=== PATIENT | male | born 1970 | race Caucasian/White ===

== ENCOUNTER 2022-10-14 06:37 | Day surgery (SDC) | payer OTHER ==
[~2022-10-14] VITALS: Ht 185.4 cm; Wt 92.1 kg
[2022-10-14] MEDS ORDERED: ASPI81CH PO (06:54)
[2022-10-14] MEDS ORDERED: AMLO5 PO (06:54)
[2022-10-14] MEDS ORDERED: ATEN25 PO (06:54)
[2022-10-14] MEDS ORDERED: ZOCOR20 MG PO (06:55)
[2022-10-14] MEDS ORDERED: GLIP5 PO (06:55)
[2022-10-14] MEDS ORDERED: ESCI20 PO (06:55)
[2022-10-14] MEDS ORDERED: METF500 PO (06:55)
[2022-10-14] MEDS ORDERED: LISI5 PO (06:55)
[2022-10-14] MEDS ORDERED: EUTHYROX88 MCG PO (06:56)
--- NOTE | 2022-10-14 08:50 | NUR ---
10/14/22 0850 Marshal Blanco IV REMOVED. SITE WNL.
== END 2022-10-14 08:40 | disposition home or self-care (01) ==
LOC: ORSCSDS 06:37
PROVIDERS: Ophthalmology
PROC: 08RJ3JZ Replacement of Right Lens with Synthetic Substitute, Percutaneous Approach (ICD-10-PCS; principal; 2022-10-14 08:00)
DX: E11.36 Type 2 diabetes mellitus with diabetic cataract (principal); H25.13 Age-related nuclear cataract, bilateral; H52.201 Unspecified astigmatism, right eye; I10 Essential (primary) hypertension; E11.40 Type 2 diabetes mellitus with diabetic neuropathy, unspecified; Z79.4 Long term (current) use of insulin; Z79.84 Long term (current) use of oral hypoglycemic drugs; E03.9 Hypothyroidism, unspecified; Z86.73 Personal history of transient ischemic attack (TIA), and cerebral infarction without residual deficits; Z79.899 Other long term (current) drug therapy; Z79.82 Long term (current) use of aspirin
CPT/HCPCS: 82947; J1100; J2001; J2250; J2405; J2704; J3010; J3301; J7040; V2632